=== PATIENT | female | born 1990 | race African-American/Black ===

== ENCOUNTER 2017-03-13 01:40 | Emergency (ER) | payer OTHER ==
[2017-03-13 01:57] VITALS: BMI 29.4
[2017-03-13] MEDS ORDERED: DEXTROSE 5%-LACTATED RINGERS 500 ML IV SCH ×2 (03:45→04:45)
[2017-03-13 03:53] LABS: URINE APPEARANCE CLEAR; URINE BILIRUBIN NEGATIVE (NEGATIVE); URINE BLOOD NEGATIVE (NEGATIVE); URINE COLOR STRAW; URINE GLUCOSE (UA) NEGATIVE (NEGATIVE); URINE KETONE TRACE (NEGATIVE); URINE NITRITE NEGATIVE (NEGATIVE); URINE PROTEIN NEGATIVE (NEGATIVE); URINE UROBILINOGEN NEGATIVE E.U./dl (0.2-1.0)
[2017-03-13 03:54] LABS: URINE LEUK ESTERASE 1+ (NEGATIVE)
[2017-03-13 03:56] LABS: URINE RBC 1 /hpf (0-3); URINE WBC 6 /hpf (3-5)
[2017-03-13 05:22] VITALS: TEMP 98.9
[2017-03-13 06:01] VITALS: BP 138/69; PULSE 111
[2017-03-13] MEDS ORDERED: NIFEdipine 10 MG CAPSULE (FP) PO ONE (06:15)
[2017-03-13] MEDS ORDERED: MAGNESIUM HYDROX 2400MG/30ML ORAL SUSPENSION 30 ML CUP PO PRN (08:22)
== END 2017-03-13 09:00 | disposition home or self-care (01) ==
LOC: JER 01:40
DX: O26.893 Other specified pregnancy related conditions, third trimester (principal); R10.30 Lower abdominal pain, unspecified; K59.00 Constipation, unspecified; Z3A.34 34 weeks gestation of pregnancy
CPT/HCPCS: 81003; 81015; 99282-25